=== PATIENT | female | born 1935 | race Two or more races ===

== ENCOUNTER 2024-03-23 23:28 | Inpatient (IN) | payer OTHER ==
[~2024-03-23] VITALS: Ht 162.6 cm; Wt 90.7 kg
--- NOTE | 2024-03-23 23:37 | NUR ---
PACIENTE TRAIDA EN AMBULANCIA DE TRANSFER POR FX. DE CADERA DERECHA ACEPTADA POR EL DR. OLIVIER. LA MISMA CANALIZADA EN MANO IZQUIERDA # 20 BAJANDO CON UN 0.9NSS KVO Y GIPSON DRENANDO ORINE AMARILLA DINO NO HEMATURIA
[2024-03-24] MEDS ORDERED: MORPHINE SULFATE 4 MG/ML VIAL IV PRN (00:15)
[2024-03-24] MEDS ORDERED: INSULIN LISPRO 1,000 UNIT/10 ML UNITS SUBCUTANEO PRN (00:15)
[2024-03-24] MEDS ORDERED: DEXTROSE 50 % IN WATER 0.5 G/ML DISP.SYRIN IV PRN (00:15)
[2024-03-24] MEDS ORDERED: 0.9 % SODIUM CHLORIDE 1,000 ML IV SCH (00:15)
[2024-03-24] MEDS ORDERED: SIMVASTATIN5 MG (00:24)
[2024-03-24] MEDS ORDERED: CLONAZEPAM0.5 MG (00:25)
[2024-03-24] MEDS ORDERED: RESTORIL30 M1 (00:25)
[2024-03-24] MEDS ORDERED: ESCITALOPRA5 MG/5 ML (00:25)
[2024-03-24] MEDS ORDERED: RISPERIDONE0.25 MG (00:25)
[2024-03-24] MEDS ORDERED: SIMVASTATIN (00:25)
[2024-03-24] MEDS ORDERED: LEVO-T75 MCG (00:26)
[2024-03-24] MEDS ORDERED: METFORMIN HCL1000 M2 (00:26)
[2024-03-24] MEDS ORDERED: ZESTRIL10 M1 (00:26)
[2024-03-24] MEDS ORDERED: FARXIGA10 MG (00:26)
--- NOTE | 2024-03-24 00:27 | NUR ---
SE ORIENTA A PACIENTE SOBRE TX MEDICO, REFIERE ENTENDER. SE REALIZAN MUESTRAS DE LABORATORIO BAJO MEDIDAS ASEPTICAS. SE ADMINSITRA IV'S Y MEDICAMENTOS ROBBIE ORDEN MEDICA. SE REALIZA EKG. PACIENTE CON SONDA URINARIA DRENANDO A GRAVEDAD. SE MANTIENE EN OBSERVACION POR CAMBIOS.
[2024-03-24] MEDS ORDERED: CLONAZEPAM 0.5 MG TABLET PO ONE (00:30)
[2024-03-24 00:47] LABS: HEMATOCRIT 41.2 % (36.0-45.00); HEMOGLOBIN 14.2 g/dL (12.0-15.00); MEAN CELL VOLUME 90.6 fL (80.00-100.00); MEAN CORPUSCULAR HEMOGLOBIN 31.3 pg (27.00-32.0); MEAN CORPUSCULAR HGB CONC 34.6 g/dl (32.0-36.0); PLATELET COUNT 139 K/uL (150-450); RED BLOOD COUNT 4.55 M/uL (4.00-6.00); RED CELL DISTRIBUTION WIDTH 13.8 % (11.5-14.5)
[2024-03-24 01:07] LABS: INR 1.03; PARTIAL THROMBOPLASTIN TIME 29.3 SECONDS (22.0-34.0); PROTHROMBIN TIME 11.2 SECONDS (9.0-11.5)
[2024-03-24 01:12] LABS: ALBUMIN 2.9 gm/dL (3.4-5.0); BILIRUBIN TOTAL 0.95 mg/dL (0.3-1.2); CALCIUM 9.1 mg/dL (8.5-10.1); CREATININE SERUM 0.67 mg/dL (0.55-1.02); GFR 83.26; POTASSIUM 3.57 mEq/L (3.5-5.1); TOTAL PROTEIN 6.9 gm/dL (6.4-8.2)
[2024-03-24 01:32] LABS: PH,URINE 6.5 (5.0-8.0); URINE APPEARANCE Clear; URINE BILIRRUBIN Negative (NEGATIVE); URINE BLOOD Moderate; URINE COLOR Yellow; URINE KETONE 15 (NEGATIVE); URINE LEUKOCYTE Negative; URINE NITRATE Negative; URINE PROTEIN Trace (NEGATIVE)
[2024-03-24 01:38] LABS: URINE BACTERIA 124.7 uL (0.0-1933); URINE EPITHELIAL CELLS 13.9 uL (0.0-38.8); URINE RBC 77.2 uL (0.0-20.8); URINE WBC 50.5 uL (0.0-23.2)
[2024-03-24 01:45] LABS: URINE CAST 0.45 uL (0.0-1.40); URINE GLUCOSE >=1000 MG/DL (NEGATIVE)
--- NOTE | 2024-03-24 05:50 | NUR ---
PACIENTE SE REMUEVE VENOPUNCION. BAJO MEDIDAS ASEPTICAS SE CANULA VENA EN MANO DERECHA #20 ARE[address] DAVID DE EDEMA Y ERITEMA. SE MANTIENE EN OBSERVACION POR CAMBIOS.
--- NOTE | 2024-03-24 07:25 | NUR ---
SE RECIBE PTE ALERTA Y ORIENTADO X3 EN CAMA BAJA Y BARANDAS ELEVADAS POR JONES SEGURIDAD EN UNIDAD DE ERMERGENCIAS. LA MISMA TIENE H/L #20 EN BRAZO DERECHO POR EL CUAL ESTA RECIBIEDNO INFUSION DE 0.9% NSS @ 100ML/HR. PTE PENDIENTE A CONSULTA.
--- NOTE | 2024-03-24 15:54 | NUR ---
SE RECIBE FEMINA EN CAMA CON BARANDAS ELEVADAS POR JONES SEGURIDAD. VENOPUNCION PATENTE BAJANDO IV FLUIDS POR REGULADOR. GIPSON PATENTE BAJANDO A GRAVEDAD CON MICHELLE QUICK. PENDIENTE A CONSULTA CON ORTOPEDIA.
[2024-03-24] MEDS ORDERED: ACETAMINOPHEN 325 MG TABLET PO PRN (19:00)
[2024-03-24 19:27] VITALS: BP 180/100; O2SAT 95
[2024-03-24] MEDS ORDERED: hydrALAZINE HCL 20 MG VIAL IV ONE (19:30)
[2024-03-24 21:00] VITALS: BP 138/78; O2SAT 95
[2024-03-24] MEDS ORDERED: TEMAZEPAM 15 MG CAPSULE PO SCH (21:00)
[2024-03-24] MEDS ORDERED: RISPERIDONE 0.25 MG TABLET PO SCH (21:00)
[2024-03-25 00:42] VITALS: BP 153/76; O2SAT 99
[2024-03-25] MEDS ORDERED: LEVOTHYROXINE SODIUM 75 MCG TABLET PO SCH (06:00)
[2024-03-25 07:50] LABS: CHOL HDL RATIO 2.3 (0-5.0); TSH 0.75 uIU/mL (0.358-3.74)
[2024-03-25 08:00] VITALS: BP 139/82; O2SAT 98
[2024-03-25] MEDS ORDERED: LISINOPRIL 10 MG TABLET PO SCH (09:00)
[2024-03-25] MEDS ORDERED: CLONAZEPAM 0.5 MG TABLET PO SCH (09:00)
[2024-03-25] MEDS ORDERED: FF) Escitalopram Oxalate 5MG TABLET PO SCH (09:00)
[2024-03-25] MEDS ORDERED: INSULIN LISPRO 1,000 UNIT/10 ML UNITS SUBCUTANEO PRN (12:15)
[2024-03-25] MEDS ORDERED: MORPHINE SULFATE 4 MG/ML CARTRIDGE IV PRN (13:30)
[2024-03-25 16:10] VITALS: BP 155/83; O2SAT 99
[2024-03-25] MEDS ORDERED: SIMVASTATIN 20 MG TABLET PO SCH (17:00)
[2024-03-25] MEDS ORDERED: INSULIN GLARGINE,HUM.REC.ANLOG 1,000 UNITS/10 ML UNITS SUBCUTANEO SCH (21:00)
[2024-03-26] VITALS: BP 105/65; O2SAT 95
[2024-03-26 07:02] LABS: HEMATOCRIT 42.9 % (36.0-45.00); HEMOGLOBIN 14.5 g/dL (12.0-15.00); MEAN CELL VOLUME 91.5 fL (80.00-100.00); MEAN CORPUSCULAR HGB CONC 33.9 g/dl (32.0-36.0); PLATELET COUNT 185 K/uL (150-450); RED BLOOD COUNT 4.69 M/uL (4.00-6.00); RED CELL DISTRIBUTION WIDTH 13.6 % (11.5-14.5)
[2024-03-26 07:25] LABS: CALCIUM 9.3 mg/dL (8.5-10.1); CREATININE SERUM 0.85 mg/dL (0.55-1.02); GFR 63.27; POTASSIUM 3.77 mEq/L (3.5-5.1)
[2024-03-26] MEDS ORDERED: FAMOtidine 20 MG TABLET PO SCH (09:00)
[2024-03-26] MEDS ORDERED: ESCITALOPRAM 5 MG PO SCH (09:00)
[2024-03-26] MEDS ORDERED: ENOXAPARIN SODIUM 40 MG/0.4 ML SYRINGE SUBCUTANEO SCH (09:00)
[2024-03-26] MEDS ORDERED: ISOPROPYL ALCOHOL 30 ML OUNCE TOP ONE (09:15)
[2024-03-26] MEDS ORDERED: VANCOMYCIN HCL 1,000 MG VIAL IR ONE (09:15)
[2024-03-26] MEDS ORDERED: CEFAZOLIN SODIUM 1,000 MG VIAL IV SCH ×2 (09:15→17:00)
[2024-03-26] MEDS ORDERED: TRANEXAMIC ACID 100MG/1ML (1000MG) AMPUL IV ONE (09:45)
[2024-03-26] MEDS ORDERED: PROMETHAZINE HCL 50 MG/ML AMPUL IM PRN (10:30)
[2024-03-26] MEDS ORDERED: TRAMADOL HCL 50 MG TABLET PO PRN (10:30)
[2024-03-26] MEDS ORDERED: MEPERIDINE HCL/PF 50 MG/ML VIAL IM PRN (10:30)
[2024-03-26] MEDS ORDERED: ONDANSETRON 4 MG TAB.RAPDIS PO PRN (10:30)
[2024-03-26] MEDS ORDERED: ONDANSETRON HCL 2 MG/ML VIAL IV PRN (10:30)
[2024-03-26] MEDS ORDERED: SODIUM CHLORIDE 0.45 % 1,000 ML IV SCH (10:30)
[2024-03-26] MEDS ORDERED: MORPHINE SULFATE 4 MG/ML VIAL IV ONE (11:10)
[2024-03-26 13:05] VITALS: BP 160/74; O2SAT 97
[2024-03-26 17:43] VITALS: BP 140/80; O2SAT 96
[2024-03-27 00:17] VITALS: BP 172/80; O2SAT 95
[2024-03-27 06:42] LABS: HEMATOCRIT 36.5 % (36.0-45.00); HEMOGLOBIN 12.7 g/dL (12.0-15.00); MEAN CELL VOLUME 89.5 fL (80.00-100.00); MEAN CORPUSCULAR HEMOGLOBIN 31.2 pg (27.00-32.0); MEAN CORPUSCULAR HGB CONC 34.9 g/dl (32.0-36.0); PLATELET COUNT 170 K/uL (150-450); RED BLOOD COUNT 4.08 M/uL (4.00-6.00); RED CELL DISTRIBUTION WIDTH 13.8 % (11.5-14.5)
[2024-03-27 07:47] VITALS: BP 167/79; O2SAT 98
[2024-03-27] MEDS ORDERED: RIVAROXABAN 10 MG TAB PO SCH (09:00)
[2024-03-27 17:00] VITALS: BP 171/85; O2SAT 98
[2024-03-28] VITALS: BP 159/73; O2SAT 97
[2024-03-28 07:29] LABS: HEMATOCRIT 35.7 % (36.0-45.00); HEMOGLOBIN 12.4 g/dL (12.0-15.00); MEAN CELL VOLUME 89.7 fL (80.00-100.00); MEAN CORPUSCULAR HEMOGLOBIN 31.2 pg (27.00-32.0); MEAN CORPUSCULAR HGB CONC 34.8 g/dl (32.0-36.0); PLATELET COUNT 178 K/uL (150-450); RED BLOOD COUNT 3.98 M/uL (4.00-6.00); RED CELL DISTRIBUTION WIDTH 13.5 % (11.5-14.5)
[2024-03-28 08:00] VITALS: BP 138/82; O2SAT 95
[2024-03-28] MEDS ORDERED: SENNA/DOCUSATE SODIUM 1 TAB TABLET PO SCH (09:00)
[2024-04-01] MEDS ORDERED: XARELTO10 MG PO (12:41)
[2024-04-01] MEDS ORDERED: CELEBREX200MG PO (14:12)
[2024-04-01] MEDS ORDERED: GABAPENTIN100 M2 PO (14:12)
== END 2024-03-28 11:54 | disposition home or self-care (01) | DRG 522 ==
LOC: ER 23:28 → SURG 03-24 20:22 → SURH 03-27 11:29
PROVIDERS: General Practice; Orthopaedic Surgery; ADMIT Student in an Organized Health Care Education/Training Program; ATTEND Student in an Organized Health Care Education/Training Program
PROC: 0QR40JZ Replacement of Right Acetabulum with Synthetic Substitute, Open Approach (ICD-10-PCS; 2024-03-26)
PROC: 0MBL0ZZ Excision of Right Hip Bursa and Ligament, Open Approach (ICD-10-PCS; 2024-03-26)
PROC: 0SRR0JZ Replacement of Right Hip Joint, Femoral Surface with Synthetic Substitute, Open Approach (ICD-10-PCS; principal; 2024-03-26 07:00)
DX: S72.091A Other fracture of head and neck of right femur, initial encounter for closed fracture (principal); F31.89 Other bipolar disorder; W01.198A Fall on same level from slipping, tripping and stumbling with subsequent striking against other object, initial encounter; Y93.9 Activity, unspecified; Y92.121 Bathroom in nursing home as the place of occurrence of the external cause; Y99.9 Unspecified external cause status; D69.6 Thrombocytopenia, unspecified; Z79.4 Long term (current) use of insulin; E11.59 Type 2 diabetes mellitus with other circulatory complications

== ENCOUNTER 2024-04-17 09:36 | Outpatient (CLI) | payer OTHER ==
[~2024-04-17 09:36] MED LIST: CELEBREX200MG PO; CLONAZEPAM0.5 MG; ESCITALOPRA5 MG/5 ML; FARXIGA10 MG; GABAPENTIN100 M2 PO; LEVO-T75 MCG; METFORMIN HCL1000 M2; RESTORIL30 M1; RISPERIDONE0.25 MG; SIMVASTATIN; SIMVASTATIN5 MG; XARELTO10 MG PO; ZESTRIL10 M1
== END 2024-04-17 09:47 | disposition home or self-care (01) ==
LOC: RAD 09:36
PROVIDERS: ATTEND Orthopaedic Surgery
DX: S72.031D Displaced midcervical fracture of right femur, subsequent encounter for closed fracture with routine healing (principal); Z96.641 Presence of right artificial hip joint

== ENCOUNTER 2024-07-04 07:10 | Outpatient (CLI) | payer OTHER | END 2024-07-04 07:15 | disposition home or self-care (01) | LOC: RAD 07:10 | PROVIDERS: ATTEND Orthopaedic Surgery | DX: S72.031D Displaced midcervical fracture of right femur, subsequent encounter for closed fracture with routine healing (principal); Z96.641 Presence of right artificial hip joint ==

== ENCOUNTER 2024-08-12 06:48 | Outpatient (CLI) | payer OTHER ==
[2024-08-12 08:26] LABS: ALBUMIN 3.2 gm/dL (3.4-5.0); BILIRUBIN TOTAL 0.53 mg/dL (0.3-1.2); CALCIUM 9.7 mg/dL (8.5-10.1); CREATININE SERUM 0.55 mg/dL (0.55-1.02); GFR 104.31; PHOSPHOROUS 3.8 mg/dL (2.5-4.9); POTASSIUM 4.71 mEq/L (3.5-5.1); TOTAL PROTEIN 7.2 gm/dL (6.4-8.2)
[2024-08-14 17:06] LABS: CALCIUM IONIZED 5.1 mg/dL (4.5-5.6)
== END 2024-08-12 06:52 | disposition home or self-care (01) ==
LOC: LAB 06:48
PROVIDERS: ATTEND Orthopaedic Surgery
DX: E55.9 Vitamin D deficiency, unspecified (principal); M85.9 Disorder of bone density and structure, unspecified; E56.1 Deficiency of vitamin K; E21.3 Hyperparathyroidism, unspecified; E88.89 Other specified metabolic disorders; M81.8 Other osteoporosis without current pathological fracture

== ENCOUNTER 2024-10-16 10:12 | Outpatient (CLI) | payer OTHER | END 2024-10-16 10:19 | disposition home or self-care (01) | LOC: NUCLEAR 10:12 | PROVIDERS: ATTEND Orthopaedic Surgery | DX: M81.0 Age-related osteoporosis without current pathological fracture (principal) ==